=== PATIENT | male | born 1970 | race Two or more races ===

== ENCOUNTER 2024-08-29 19:33 | Emergency (ER) | payer BC ==
[~2024-08-29] VITALS: Ht 172.7 cm; Wt 102.5 kg
[~2024-08-29 19:33] MED LIST: CHLO473M7 MM; IBUP200C5 PO
[2024-08-29] MEDS: TDAP DIPH,PERTUSS,TET VAC/PF 0.5 ML DISP.SYRIN IM ONE (21:44)
[2024-08-29 21:46] VITALS: BP 120/88; TEMP 97.8; O2SAT 100
== END 2024-08-29 21:46 | disposition home or self-care (01) ==
LOC: ER 19:33
DX: S61.210A Laceration without foreign body of right index finger without damage to nail, initial encounter (principal); E78.00 Pure hypercholesterolemia, unspecified; I11.9 Hypertensive heart disease without heart failure; F32.A Depression, unspecified; Z79.82 Long term (current) use of aspirin; Z88.6 Allergy status to analgesic agent; W27.4XXA Contact with kitchen utensil, initial encounter; Y93.89 Activity, other specified; Y92.89 Other specified places as the place of occurrence of the external cause; Y99.8 Other external cause status
CPT/HCPCS: A4606; A4663